=== PATIENT | female | born 1970 | race Caucasian/White ===

== ENCOUNTER 2016-06-22 09:12 | Day surgery (SDC) | payer OTHER ==
[~2016-06-22] VITALS: Ht 162.6 cm; Wt 55.3 kg
[~2016-06-22 09:12] MED LIST: OMEP20CA11 PO; SPIR100T3 PO; Sodium Chloride LOK Flush 10 mL Syringe IV PRN; THYR60TA2 PO; fentaNYL-PF 50 mCg/mL 2 mL Inj IVPUSH PRN
[2016-06-22 09:29] VITALS: BP 109/74; PULSE 66; RESP 14; O2SAT 96
[2016-06-22] MEDS ORDERED: fentaNYL-PF 50 mCg/mL 2 mL Inj ONE (09:40)
[2016-06-22] MEDS: 0.9% Sodium Chloride 1,000 ML IV SCH ×3 (09:57→11:00)
[2016-06-22 10:22] VITALS: BP 99/58; PULSE 59; RESP 16; O2SAT 95
[2016-06-22 10:32] VITALS: BP 95/58; PULSE 66; RESP 16; O2SAT 95
[2016-06-22 10:46] VITALS: BP 94/61; PULSE 64; RESP 16; O2SAT 97
--- NOTE | 2016-06-22 12:06 | ENDO ---
[address] [address] ENDOSCOPY PROCEDURE PATIENT: YAZMIN SALCIDO : 1970 MR#: [id number] ADMIT: 06/22/2016 JOB ID: [id number] DATE: 06/22/2016 PROCEDURE: 1. Esophagogastroduodenoscopy with biopsy. 2. Esophageal dilatation. PREOPERATIVE DIAGNOSIS(ES): Dysphagia. POSTOPERATIVE DIAGNOSIS(ES): 1. Mild nonerosive gastritis, status post biopsy. 2. Status post CRE TTS serial balloon dilatation performed from 18 to 20 cm in diameter with good mucosal care of lower esophagus. ANESTHESIA: Fentanyl 150 mcg, Versed 7 mg IV administered. COMPLICATIONS: None. BLOOD LOSS: Minimal. DESCRIPTION OF PROCEDURE: After risks and benefits were explained to the patient, informed consent was obtained. After anesthesia administered, upper endoscope was then inserted into mouth and intubated into the esophagus, stomach, second portion of duodenum, and mucosa carefully examined. After the procedure was done, the scope was withdrawn and procedure terminated. FINDINGS: Upon inspection of esophagus, esophagus was normal without masses, ulcers, or lesions. No rings or varicose furrows or seen. Z-line located 40 cm from incisors. Upon entry into stomach, there was mild nonerosive gastritis seen throughout the entire stomach. No masses or ulcers were seen. Retroflexion was normal. No hiatal hernia was seen. Duodenal bulb, first and second portion, were normal. Biopsies were taken of antrum and body of the stomach and distal esophagus. Afterwards, a serial TTS CRE balloon dilatation performed in serial fashion was inflated from 18 to 20 cm in diameter in the lower esophagus with good mucosal care for at least 1 minute. IMPRESSIONS: 1. Mild nonerosive gastritis, status post biopsy. 2. Serial TTS CRE balloon dilatation from 18 to 20 cm in diameter with good mucosal care. RECOMMENDATIONS: Await pathology results. Follow up in GI clinic as needed.
--- NOTE | 2016-06-24 10:58 | PATH ---
SURGICAL PATHOLOGY Attending Physician:Jae Esqueda MD CASE STATUS: Signed Out PATIENT NAME: YAZMIN SALCIDO PID: [id number] : 1970 DATE COLLECTED:06/22/2016 16:05 SPECIMEN: 1: Esophagus, Biopsy 2: Esophagus, Biopsy 3: Gastric, Biopsy 4: Stomach, Antrum, Biopsy CLINICAL HISTORY: 1: MID-ESOPHAGUS BIOPSY 2: DISTAL ESOPHAGUS BIOPSY 3: GASTRIC BODY BIOPSY 4: ANTRAL BIOPSY FINAL DIAGNOSIS: 1. Mid Esophagus Biopsy: Esophageal squamous mucosa with no diagnostic alterations. Negative for intestinal metaplasia. Negative for dysplasia and malignancy. 2. Distal Esophagus Biopsy: Esophageal squamous mucosa with no diagnostic alterations. Negative for intestinal metaplasia. Negative for dysplasia and malignancy. 3. Gastric Body Biopsy: Gastric body mucosa with mild chronic inflammation. Negative for Helicobacter pylori by immunohistochemical stains. Negative for intestinal metaplasia. Negative for dysplasia and malignancy. 4. Gastric Antrum Biopsy: Gastric antral mucosa with reactive gastropathy and focal active inflammation. Negative for Helicobacter pylori by immunohistochemistry. Negative for intestinal metaplasia. Negative for dysplasia and malignancy. ICD10 K29.70 GROSS DESCRIPTION: The specimen is received in four formalin filled containers labeled with the patient's name. 1). The specimen is sublabeled "mid esophagus" and consists of 3 portions of tissue which aggregate to 0.3 x 0.3 x 0.2 CM. The specimen is entirely submitted in cassette 1A. 2). The specimen is sublabeled "distal esophagus" and consists of 2 portions of tissue which aggregate to 0.4 x 0.2 x 0.1 CM. The specimen is entirely submitted in cassette 2A. 3). The specimen is sublabeled "gastric body" and consists of 3 portions of tissue which aggregate to 0.3 x 0.3 x 0.2 CM. The specimen is entirely submitted in cassette 3A. 4). The specimen is sublabeled "antral" and consists of 2 portions of tissue which aggregate to 0.4 x 0.3 x 0.2 CM. The specimen is entirely submitted in cassette 4A. 06/22/2016 [facility] MICRO DESCRIPTION: 1-2) Please see diagnosis. 3) Sections are of gastric body mucosa with minimal chronic inflammation. No Helicobacter pylori organisms are identified on H&E stains. Immunohistochemical stains are performed to further evaluate for the presence of Helicobacter organisms. The patient tissue is stained with polyclonal antibody to Helicobacter pylori. Positive and negative controls stain appropriately. RESULTS: The patient tissue shows no staining. INTERPRETATION: The gastric body is negative for Helicobacter pylori by immunohistochemical stains. 4) Sections are of gastric antral mucosa with reactive gastropathy and focal active inflammation. No Helicobacter organisms are identified on H&E stains. Immunohistochemical stains for Helicobacter pylori are performed to further evaluate for the presence of Helicobacter organisms. The patient tissue is stained with polyclonal antibody to Helicobacter pylori. Positive and negative controls stain appropriately. RESULT: The patient tissue shows no staining. INTERPRETATION: The gastric antral mucosa is negative for Helicobacter pylori by immunohistochemical stains. * This test was developed and its performance characteristics determined by [employer]. It has not been cleared or approved by the U.[place]. Food and Drug Administration. The FDA has determined that such clearance or approval is not necessary. This test is used for clinical purposes. It should not be regarded as investigational or for research. ICD-9 CODES: CPT CODES: 1: 11733 2: 88145 3: 48774, 29523 4: 26212, 77346 Electronically Signed Out Mikki Santos MD [facility] Pathology [facility] [address], [place] [address] Technical component performed at [facility], [address], [place], [address]
== END 2016-06-22 23:59 | disposition home or self-care (01) ==
LOC: END 09:12
PROVIDERS: ATTEND Internal Medicine Gastroenterology
DX: K29.70 Gastritis, unspecified, without bleeding (principal); E07.9 Disorder of thyroid, unspecified
CPT/HCPCS: 43239; 43249; 88305; 88342; 99153; G0500; J2250; J7030